=== PATIENT | male | born 2000 | race Caucasian/White ===

== ENCOUNTER 2024-02-22 16:24 | Emergency (ER) | payer OTHER ==
[2024-02-22] MEDS: Ibuprofen 600 MG Tab PO ONE (17:26)
== END 2024-02-22 17:35 | disposition home or self-care (01) ==
LOC: MW.ED 16:24
DX: M70.842 Other soft tissue disorders related to use, overuse and pressure, left hand (principal); M25.542 Pain in joints of left hand; M79.645 Pain in left finger(s); Z75.8 Other problems related to medical facilities and other health care
CPT/HCPCS: 73140-26-FA; 73140-FA; 99283